=== PATIENT | male | born 1985 | race Caucasian/White ===

== ENCOUNTER 2019-11-28 07:50 | Outpatient (CLI) | payer BC, SELFPAY ==
--- NOTE | ~2019-11-28 | MR_ITS ---
EXAMINATION: MR lumbar spine wo con DATE: 11/28/2019 09:09 INDICATION: Lumbar degenerative disc disease with spondylosis and radiculopathy. Low back and right l eg pain since lifting injury one month prior. TECHNIQUE: Magnetic resonance imaging (MRI) of the lumbar spine was performed without intravenous con trast. Sequences included sagittal T2-weighted FSE, sagittal T2-weighted FS FSE, sagittal T1-weighted FSE, and axial T2-weighted FSE. COMPARISON: None FINDINGS: Alignment is normal. Vertebral body heights are normal. Normal marrow signal. Fracture or pathologic marrow replacing process. Disc desiccation and mild disc height loss at L4-L5 and L5-S1. There are a nnular fissures at both levels. The discs from T11-T12 through L3-L4 are normal. The conus medullaris terminates at L2. There is normal signal in the caudal spinal cord. Paravertebral soft tissues are u nremarkable. The following disc levels are specifically discussed: T12-L1: The disc does not extend beyond the endplate margin. There is no facet joint osteoarthritis. There is no neural foraminal stenosis. There is no central canal stenosis. L1-L2: The disc does not extend beyond the endplate margin. There is mild bilateral facet joint osteo arthritis. There is no neural foraminal stenosis. There is no central canal stenosis. L2-L3: The disc does not extend beyond the endplate margin. There is normal right and mild left facet joint osteoarthritis. There is no neural foraminal stenosis. There is no central canal stenosis. L3-L4: The disc does not extend beyond the endplate margin. There is mild left and minimal right face t joint osteoarthritis with small subarticular cyst at the left inferior articular process of L3. The re is no neural foraminal stenosis. There is no central canal stenosis. L4-L5: Disc is bulging with superimposed small central disc protrusion. There is mild bilateral facet joint osteoarthritis. There is mild right and mild to moderate left neural foraminal stenosis. There is mild central canal stenosis. L5-S1: Broad-based disc extrusion extending from foraminal zone to foraminal zone with disc material extending a few millimeters cephalad and caudal to the level of the endplates. There is minimal bilat eral facet joint osteoarthritis. There is mild right and moderate left neural foraminal stenosis. The re is mild central canal stenosis. There is also narrowing of the left and right lateral recesses wit h compression of the bilateral traversing S1 nerve roots. IMPRESSION: 1. Mild lower lumbar spondylosis most notable for broad-based disc extrusion at L5-S1 which narrows t he lateral recesses and exerts mass effect upon the bilateral traversing S1 nerve roots. Reviewed, dictated and finalized at location A. GE AIDE IMPRESSION: 1. Mild lower lumbar spondylosis most notable for broad-based disc extrusion at L5-S1 which narrows the lateral recesses and exerts mass effect upon the bilat eral traversing S1 nerve roots.
== END 2019-11-28 07:51 | disposition home or self-care (01) ==
PROVIDERS: Visit Provider Neurological Surgery
DX: M51.36 Other intervertebral disc degeneration, lumbar region (principal); M47.816 Spondylosis without myelopathy or radiculopathy, lumbar region
CPT/HCPCS: 72148